=== PATIENT | male | born 1945 | race Caucasian/White ===

== ENCOUNTER → 2016-10-01 | Day surgery (SDC) | payer OTHER ==
--- NOTE | 2016-09-28 13:27 | History & Physical Pre-Op ---
General Information and HPI History of Present Illness: Luis Alberto is a 70-year-old male with a long-standing and worsening complaint of painful hallux malleus left foot. The patient has undergone an extended course of conservative care, including shoe gear and activity modification, rest, immobilization and courses of NSAIDs. None of this is yielded him any significant relief. The patient presents today for preoperative surgical consultation and was referred to our office by Luis Alberto Rivera DPM. Allergies/Medications Allergies: Coded Allergies: No Known Allergies (09/26/16) Home Med list Aspirin (Ecotrin*) 81 MG TABLET.DR 1 TAB PO DAILY PROPHO (Reported) Atorvastatin Calcium 40 MG TABLET 1 TAB PO DAILY CHOLESTEROL (Reported) Carbamazepine (Tegretol XR) 100 MG TAB.ER.12H 1 TAB PO TID SEIZURE DISORDER ( Reported) Phenytoin (Dilantin) 100 MG CAPSULE 2 CAP PO TID SEIZURE DISORDER (Reported) Venlafaxine HCl (Venlafaxine HCl ER) 150 MG CAP.ER.24H 1 CAP PO DAILY DEPRESSION (Reported) Past History Medical History Neurological: seizure Surgical History Pertinent Surgical History: hernia repair-incisional, knee replacement Review of Systems Review of Systems: Unremarkable except for that noted in history present illness Exam & Diagnostic Data Physical Exam: Lungs clear bilaterally. Heart sounds rate and rhythm regular. Lower extremity physical exam demonstrates intact pedal pulses bilaterally. Pulses dorsalis pedis and posterior tibial arteries are palpable bilaterally. Any sensory motor deficits. Deep tendon reflexes grossly intact. Patient noted to have significant pain with palpation or range of motion through the left first interphalangeal joint. Assessment/Plan Assessment/Plan: Painful degenerative joint disease with hallux malleus left foot. A lengthy discussion reviewing both surgical and conservative options was held the patient at bedside and the patient elects to go forward surgery despite the risks. As Ranked By This Provider Problem List: 1. Primary osteoarthritis, left ankle and foot Attending MD Review Statement Attending Statement Attending MD Statement: examined this patient
[~2016-10-01] VITALS: Ht 180.3 cm; Wt 111.1 kg
[~2016-10-01] MED LIST: ASPIRIN EC81 M1 PO; ATORVASTATIN CA40 M1 PO; DILANTIN100 M1 PO; TEGRETOL XR100 MG PO; VENLAFAXINE HC150 MG PO
--- NOTE | 2016-10-01 09:14 | Operative Report ---
Operative/Inv Procedure Report Surgery Date: 10/01/16 Name of Procedure: 1 left hallux interphalangeal phalangeal joint fusion 2 arthroplasty fifth toe left foot 3 intraoperative administration of ankle block anesthesia Pre-Operative Diagnosis: 1 DJD left hallux interphalangeal joint 2 hammertoe fifth toe left foot Post-Operative Diagnosis: The same Estimated Blood Loss: scant Surgeon/Strategic Planning Analyst: MATT LUNA DPM Anesthesia: moderate sedation, block Operative/Procedure Note Note: After obtaining informed consent the patient was brought to the operating room and placed on the operating table in the supine position. The patient was then securely fastened to the operating table utilizing safety belt. After administration of IV sedation, 10 mL of 0.5% Marcaine plain was infiltrated about the patient's left ankle. 2 g of Ancef were delivered intravenously times one dose. A well-padded ankle tourniquet was placed about the patient's left lower extremity. The left foot and ankle within scrubbed prepped and draped in the usual aseptic manner. Left lower extremity was elevated to examine to limb, at which point the ankle tourniquet was inflated 250 mmHg. Attention directed dorsal aspect of the left foot, where a curvilinear incision over the interphalangeal joint was incised with 15 blade and deepened subtenons tissues. The dissection was then carried down to the capture structures where transverse capsulotomy was performed exposing the interphalangeal joint. The extensor hallucis longus tendon was identified and retracted laterally. No significant degenerative changes noted within the joint and the cartilage on either side was curetted down to subchondral bone. The subchondral bone was then fenestrated with a 60 K wire. Next the fusion was fixated with 2 crossing cortical screws. The alignment and placement of the hardware was verified under intraoperative fluoroscopy. Next 2 transversely oriented semielliptical incisions over the proximal interphalangeal joint and 50 oh incised with a 15 blade. Dissection was carried down to the subtenons tissues and the ellipse of skin was freed and passed from the operative field. Transverse tenotomy was performed exposing the head of proximal phalanx. This was removed a sagittal bone saw. Extensor tendon was reprepped with 4-0 Vicryl and the skin edges reapproximated 4-0 nylon. The incision was dressed with Xeroform 4 x 4's Kerlix and an David wrap. The patient was noted to tolerate both procedure and anesthesia well and the patient was transported from the operating room to recovery with vital signs stable best assess intact all digits left foot.
== END ==
LOC: STS 01:12
DX: M19.072 Primary osteoarthritis, left ankle and foot (principal); M20.42 Other hammer toe(s) (acquired), left foot; E66.9 Obesity, unspecified; Z68.36 Body mass index [BMI] 36.0-36.9, adult; Z87.891 Personal history of nicotine dependence
CPT/HCPCS: J2001; J2250